=== PATIENT | female | born 1955 | race Two or more races ===

== ENCOUNTER 2023-09-05 05:09 | Day surgery (SDC) | payer OTHER ==
[2023-08-29 17:16] LABS: INR 1.04; PROTHROMBIN TIME 10.9 SECONDS (9.0-11.5)
[2023-09-05] MEDS ORDERED: CEFAZOLIN SODIUM 1,000 MG VIAL ONE ×2 (06:07→07:38)
[2023-09-05] MEDS ORDERED: GENTAMICIN SULFATE 40 MG/ML VIAL ONE (07:38)
[2023-09-05] MEDS ORDERED: CHLORHEXIDINE GLUCONATE 120 ML BOTTLE TOP ONE (07:39)
[2023-09-05] MEDS ORDERED: VANCOMYCIN HCL 1,000 MG VIAL ONE (07:39)
[2023-09-05] MEDS ORDERED: GENTAMICIN SULFATE 40 MG/ML VIAL IR ONE (08:30)
[2023-09-05] MEDS ORDERED: CEFAZOLIN SODIUM 1,000 MG VIAL IV ONE (08:30)
[2023-09-05] MEDS ORDERED: LIDOCAINE HCL/EPINEPHRINE 20 ML VIAL IJ ONE (08:30)
[2023-09-05] MEDS ORDERED: TRAM1TAB98 PO (09:37)
== END 2023-09-05 15:15 | disposition home or self-care (01) ==
LOC: CIR.AMB 05:09
PROVIDERS: ATTEND Obstetrics & Gynecology Gynecology
DX: N81.6 Rectocele (principal); Z20.822 Contact with and (suspected) exposure to COVID-19